=== PATIENT | male | born 1965 | race Two or more races ===

== ENCOUNTER 2017-09-18 13:41 | Emergency (ER) | payer MEDICAID, OTHER ==
[~2017-09-18] VITALS: Ht 172.7 cm; Wt 86.2 kg
[2017-09-18 13:56] VITALS: BP 160/94
== END 2017-09-18 16:04 | disposition home or self-care (01) ==
LOC: ER 13:41
DX: M79.672 Pain in left foot (principal); M77.9 Enthesopathy, unspecified